=== PATIENT | female | born 1955 | race Caucasian/White ===

== ENCOUNTER → 2017-03-06 | Outpatient (CLI) | payer BC ==
[2017-03-06 11:05] LABS: CREATININE SERUM 0.97 MG/DL (0.60-1.30); POTASSIUM 3.4 MMOL/L (3.6-5.0)
--- NOTE | 2017-03-06 12:45 | Diagnostic Imaging Report ---
INDICATION: Hypertension. No chest complaints. COMPARISON STUDIES: None. FINDINGS: Frontal and lateral views of the chest demonstrate previous sternotomy changes. The heart size and vascularity are normal. The lungs are clear. No pleural effusions are present. IMPRESSION: There are no acute findings. Dictated by: Dictated on workstation # [id number]
== END ==
LOC: RAD 10:19
PROVIDERS: ATTEND Internal Medicine Cardiovascular Disease
DX: I10 Essential (primary) hypertension (principal); E78.5 Hyperlipidemia, unspecified; Z95.2 Presence of prosthetic heart valve
CPT/HCPCS: 36415; 71020; 80048

== ENCOUNTER → 2017-04-02 | Outpatient (CLI) | payer BC ==
[2017-04-02 08:40] LABS: ANION GAP 10 MMOL/L (5-14); BLOOD UREA NITROGEN 16 MG/DL (7-18); BUN/CREATININE RATIO 18; CALCIUM 9.1 MG/DL (8.5-10.1); CARBON DIOXIDE 30 MMOL/L (21-32); CHLORIDE 100 MMOL/L (98-107); CREATININE SERUM 0.89 MG/DL (0.60-1.30); GFR ESTIMATED > 60; GLUCOSE 147 MG/DL (70-105); POTASSIUM 3.2 MMOL/L (3.6-5.0); SODIUM 140 MMOL/L (135-145)
== END ==
LOC: LAB 08:01
PROVIDERS: ATTEND Internal Medicine Cardiovascular Disease
DX: E87.6 Hypokalemia (principal)
CPT/HCPCS: 36415; 80048

== ENCOUNTER → 2017-08-25 | Outpatient (CLI) | payer BC ==
[2017-08-25 11:43] LABS: BASOPHILS % (AUTO) 1 % (0-10); EOSINOPHILS # (AUTO) 0.1 10^3/uL (0.0-0.3); EOSINOPHILS % (AUTO) 1 % (0-10); LYMPHOCYTES # (AUTO) 1.8 X 10^3 (1.0-4.0); LYMPHOCYTES % (AUTO) 26 % (12-44); MEAN CORPUSCULAR HEMOGLOBIN 30 PG (25-34); MEAN CORPUSCULAR HGB CONC 34 G/DL (32-36); MEAN CORPUSCULAR VOLUME 87 FL (80-99); MEAN PLATELET VOLUME 9.1 FL (7.4-10.4); MONOCYTES # (AUTO) 0.6 X 10^3 (0.0-1.0); MONOCYTES % (AUTO) 9 % (0-12); NEUTROPHILS # (AUTO) 4.4 X 10^3 (1.8-7.8); NEUTROPHILS % (AUTO) 63 % (42-75); PLATELET COUNT 235 10^3/uL (130-400); RED BLOOD COUNT 5.23 10^6/uL (4.35-5.85); RED CELL DISTRIBUTION WIDTH 13.1 % (10.0-14.5); WHITE BLOOD COUNT 6.9 10^3/uL (4.3-11.0)
[2017-08-25 12:12] LABS: ALBUMIN 4.4 GM/DL (3.2-4.5); BILIRUBIN,TOTAL 0.7 MG/DL (0.1-1.0); CALCIUM 9.9 MG/DL (8.5-10.1); CREATININE SERUM 1.07 MG/DL (0.60-1.30); POTASSIUM 3.5 MMOL/L (3.6-5.0)
[2017-08-25 12:34] LABS: THYROID STIMULATING HORMONE 1.52 UIU/ML (0.35-4.94)
== END ==
LOC: LAB 11:18
PROVIDERS: ATTEND Family Medicine
DX: F31.81 Bipolar II disorder (principal); F32.9 Major depressive disorder, single episode, unspecified; I10 Essential (primary) hypertension; N95.9 Unspecified menopausal and perimenopausal disorder; E78.2 Mixed hyperlipidemia; R73.09 Other abnormal glucose; E06.3 Autoimmune thyroiditis
CPT/HCPCS: 36415; 80053; 80061; 83036; 84439; 84443; 85025; 87088

== ENCOUNTER → 2018-02-19 | Outpatient (CLI) | payer BC ==
[2018-02-19 09:25] LABS: BASOPHILS % (AUTO) 1 % (0-10); EOSINOPHILS # (AUTO) 0.2 10^3/uL (0.0-0.3); EOSINOPHILS % (AUTO) 3 % (0-10); HEMATOCRIT 43 % (35-52); HEMOGLOBIN 15.2 G/DL (11.5-16.0); LYMPHOCYTES # (AUTO) 1.6 X 10^3 (1.0-4.0); LYMPHOCYTES % (AUTO) 27 % (12-44); MEAN CORPUSCULAR HEMOGLOBIN 31 PG (25-34); MEAN CORPUSCULAR HGB CONC 35 G/DL (32-36); MEAN CORPUSCULAR VOLUME 87 FL (80-99); MEAN PLATELET VOLUME 9.7 FL (7.4-10.4); MONOCYTES # (AUTO) 0.6 X 10^3 (0.0-1.0); MONOCYTES % (AUTO) 10 % (0-12); NEUTROPHILS # (AUTO) 3.5 X 10^3 (1.8-7.8); NEUTROPHILS % (AUTO) 59 % (42-75); PLATELET COUNT 220 10^3/uL (130-400); RED BLOOD COUNT 4.98 10^6/uL (4.35-5.85); RED CELL DISTRIBUTION WIDTH 13.3 % (10.0-14.5); WHITE BLOOD COUNT 5.9 10^3/uL (4.3-11.0)
[2018-02-19 09:55] LABS: CHOLESTEROL 201 MG/DL (< 200); HDL CHOLESTEROL 50 MG/DL (40-60); TRIGLYCERIDES 120 MG/DL (<150); VLDL CHOLESTEROL 24 MG/DL (5-40)
[2018-02-19 10:10] LABS: ALANINE AMINOTRANSFERASE 20 U/L (0-55); ALBUMIN 4.5 GM/DL (3.2-4.5); ALKALINE PHOSPHATASE 59 U/L (40-136); BILIRUBIN,TOTAL 0.6 MG/DL (0.1-1.0); TOTAL PROTEIN 7.4 GM/DL (6.4-8.2)
[2018-02-19 10:26] LABS: FREE T4 (FREE THYROXINE) 1.17 NG/DL (0.70-1.48)
[2018-02-19 10:38] LABS: BUN/CREATININE RATIO 16; CALCIUM 9.4 MG/DL (8.5-10.1); CARBON DIOXIDE 25 MMOL/L (21-32); CHLORIDE 103 MMOL/L (98-107); CREATININE SERUM 0.93 MG/DL (0.60-1.30); GFR ESTIMATED > 60; GLUCOSE 124 MG/DL (70-105); POTASSIUM 3.9 MMOL/L (3.6-5.0); SODIUM 141 MMOL/L (135-145)
[2018-02-20 07:48] LABS: HEPATITIS C ANTIBODY C Non-Reactive (Non-Reactive)
== END ==
LOC: LAB 08:26
PROVIDERS: ATTEND Family Medicine
DX: I10 Essential (primary) hypertension (principal); E11.8 Type 2 diabetes mellitus with unspecified complications; E03.8 Other specified hypothyroidism; E06.3 Autoimmune thyroiditis; Z11.59 Encounter for screening for other viral diseases
CPT/HCPCS: 36415; 80053; 80061; 84439; 84443; 84480; 85025; 86803

== ENCOUNTER → 2018-02-19 | Outpatient (CLI) | payer BC ==
[~2018-02-19] MED LIST: CATHETER FLUSH 10 ML SYR IV PRN; IOHEXOL 350 MG/ML 150 ML (OMNIPAQUE 350) VIAL IV ONE; NS 250 ML (IVPB) BAG IV ONE
[2018-02-19 09:53] LABS: BUN/CREATININE RATIO 16; CALCIUM 9.6 MG/DL (8.5-10.1); CARBON DIOXIDE 27 MMOL/L (21-32); CHLORIDE 103 MMOL/L (98-107); CREATININE SERUM 0.91 MG/DL (0.60-1.30); GFR ESTIMATED > 60; GLUCOSE 124 MG/DL (70-105); SODIUM 141 MMOL/L (135-145)
--- NOTE | 2018-02-19 12:48 | Diagnostic Imaging Report ---
PROCEDURE: CT angiography of the chest with contrast. TECHNIQUE: Multiple contiguous axial images were obtained through the chest after uneventful bolus administration of intravenous contrast. Reconstructed CTA MIP acquisitions were also performed. INDICATION: Congenital heart disease, prior aortic valve repair. FINDINGS: There are no previous CT examinations available for comparison. The plain film examination of the chest performed on 03/06/2017 noted that the heart size was within normal limits. There were sternotomy wires and a valvular prosthesis evident. There was no sign of an acute abnormality. On this exam, the heart size remains within normal limits. There are sparse coronary artery calcifications evident. The aorta is not abnormally dilated. The ascending aorta measures 3.2 x 3.2 cm in maximum AP and transverse diameters. On the coronal images, the aortic root measures approximately 3 cm in maximum transverse diameter. There is no sign of dissection. There is no defect within the pulmonary arteries to indicate a pulmonary embolus. There do appear to be two contiguous nodes about the right hilum. These have a conglomerate size of approximately 2.1 x 2.2 cm. There is also a 1.2 x 1.4 cm left hilar node. A 1.3 x 1.6 cm pretracheal node is also evident. The hilar and pretracheal nodes are borderline enlarged but nonspecific in appearance. If previous studies are available, they would be helpful for comparison. There is a 0.8 x 1.3 cm area of low density in the left lobe of the thyroid. This is most likely a benign process but ultrasound would be recommended to better characterize this finding. The lungs are generally clear and well aerated. There is no sign of failure, pneumonia, or of a pleural effusion to suggest an acute abnormality. There is no parenchymal lung mass identified either. The sections through the upper abdomen fail to show any evidence for an acute abnormality. The liver is of lower density than usually seen. This does suggest fatty metamorphosis. There is also poorly defined 1.2 x 1.2 cm area of enhancement in the left lobe of the liver. This probably represents a small hemangioma. If previous studies are available, they would be helpful for comparison. If there are no prior exams, then a followup CT abdomen study with hemangioma protocol would be recommended to confirm this. Also, there is a 1.9 x 4.3 cm bilobed nodule associated with the left adrenal gland. There is also a 1.1 x 1.7 cm nodule arising from the right adrenal gland. These may well be benign adenomas. However, unless there are previous studies available to document that these are stable, then MRI would be recommended to better characterize these lesions. If the MRI exam is not performed, then a short-term (three-month) followup CT abdomen exam should be obtained. There is a 3.1 x 4.0 cm cyst along the posterior aspect of the left kidney. This cyst has a generally benign appearance. The bone windows are unremarkable for fracture or for an destructive lesion. There is no obvious breast mass. According to our records, the patient has not had a recent (within the last year) mammogram. If the patient has had a recent mammogram elsewhere, then no further imaging would be necessary. However, if the patient has not had a recent mammogram, then mammography would be recommended for further evaluation of the breast. IMPRESSION: 1. There is no evidence for an acute cardiopulmonary abnormality. In particular, there is no sign of an aneurysm of the aorta and there is no evidence for a dissection. There are postsurgical changes present, consistent with prior repair of the aortic valve. 2. There are few borderline enlarged nodes involving the diane and the mediastinum. These are nonspecific in appearance. If previous exams are available, they would be helpful for comparison. 3. There are multiple other abnormalities involving the thyroid gland and the upper abdomen. These would be best evaluated by comparison to previous studies. If there are no prior exams available, then additional imaging would be recommended as described above. Dictated by: Dictated on workstation # [id number]
--- NOTE | 2018-02-19 20:19 | Diagnostic Imaging Report ---
EXAMINATION: Calcium CTA, calcium score. Routine images were obtained. There are no prior studies available for comparison. The calcium score is 0. FINDINGS: The images of the thorax show that the heart size is within normal limits. There are sternotomy wires and surgical clips present, and there is a valvular prosthesis as well. The lungs, where visualized, are generally clear. There is no mediastinal or hilar adenopathy. The bone windows are unremarkable for a fracture or for a destructive lesion. The sections through the upper abdomen fail to show any sign of an acute abnormality. There is no obvious breast mass. IMPRESSION: 1. The calcium score is 0. 2. There is evidence of prior cardiac surgery and aortic valve repair. The thorax, where visualized, shows no acute abnormality. Dictated by: Dictated on workstation # [id number]
== END ==
LOC: CARD 08:33
PROVIDERS: ATTEND Internal Medicine Cardiovascular Disease
DX: I10 Essential (primary) hypertension (principal); E78.5 Hyperlipidemia, unspecified; Z95.2 Presence of prosthetic heart valve; Z98.890 Other specified postprocedural states; R91.8 Other nonspecific abnormal finding of lung field
CPT/HCPCS: 71275; 75571; 80048; 93306

== ENCOUNTER → 2018-09-30 | Outpatient (CLI) | payer BC ==
--- NOTE | 2018-09-30 12:53 | Diagnostic Imaging Report ---
PROCEDURE: US Thyroid. TECHNIQUE: Multiple real-time grayscale images were obtained of the thyroid in various projections. INDICATION: Thyroid nodules. COMPARISON: No prior studies are available for comparison. FINDINGS: The right lobe of the thyroid measures 6.0 x 2.3 x 1.9 cm and the left lobe measures 5.4 x 1.9 x 1.8 cm. Both lobes are heterogeneous and contain nodules. Largest nodule on the right is in the lower pole measuring 1.4 x 1.3 x 1.1 cm. Largest nodule on the left is in the lower pole measuring 2.0 x 1.3 x 1.6 cm. No microcalcifications are present. IMPRESSION: Bilateral thyroid nodules, largest on the left. A fine-needle aspiration could be performed of the dominant nodule. Dictated by: Dictated on workstation # [id number]
== END ==
LOC: RAD 11:48
PROVIDERS: ATTEND Otolaryngology Otolaryngology/Facial Plastic Surgery
DX: E04.2 Nontoxic multinodular goiter (principal)
CPT/HCPCS: 76536

== ENCOUNTER → 2018-09-30 | Outpatient (CLI) | payer BC ==
[2018-09-30 13:01] LABS: INR 2.1 (0.8-1.4); PROTHROMBIN TIME PATIENT 23.8 SEC (12.2-14.7)
[2018-09-30 13:09] LABS: ALANINE AMINOTRANSFERASE 19 U/L (0-55); ALBUMIN 4.7 GM/DL (3.2-4.5); ALKALINE PHOSPHATASE 68 U/L (40-136); BILIRUBIN,TOTAL 0.6 MG/DL (0.1-1.0); BUN/CREATININE RATIO 14; CALCIUM 9.8 MG/DL (8.5-10.1); CARBON DIOXIDE 30 MMOL/L (21-32); CHLORIDE 101 MMOL/L (98-107); CREATININE SERUM 0.93 MG/DL (0.60-1.30); GFR ESTIMATED > 60; GLUCOSE 88 MG/DL (70-105); POTASSIUM 3.8 MMOL/L (3.6-5.0); SODIUM 141 MMOL/L (135-145); TOTAL PROTEIN 7.8 GM/DL (6.4-8.2)
== END ==
LOC: LAB 11:52
PROVIDERS: ATTEND Internal Medicine Cardiovascular Disease
DX: E87.6 Hypokalemia (principal); Z95.2 Presence of prosthetic heart valve; E11.8 Type 2 diabetes mellitus with unspecified complications
CPT/HCPCS: 36415; 80053; 85610

== ENCOUNTER → 2018-12-31 | Outpatient (CLI) | payer BC ==
--- NOTE | 2018-12-31 13:38 | Diagnostic Imaging Report ---
INDICATION: Multinodular goiter. Sonographic guidance was provided for Dr. Hare for a fine-needle aspiration. Images demonstrate a left lobe thyroid solid mass. Total of 3 passes were made. IMPRESSION: Sonographic guidance for Dr. Hare for left thyroid FNA. Dictated by: Dictated on workstation # [id number]
== END ==
LOC: RAD 10:00
PROVIDERS: ATTEND Otolaryngology Otolaryngology/Facial Plastic Surgery
DX: E04.2 Nontoxic multinodular goiter (principal)
CPT/HCPCS: 76942

== ENCOUNTER → 2019-10-06 | Outpatient (CLI) | payer BC ==
--- NOTE | 2019-10-06 12:11 | Diagnostic Imaging Report ---
PROCEDURE: US Thyroid. TECHNIQUE: Multiple real-time grayscale images were obtained of the thyroid in various projections. INDICATION: Multinodular goiter. COMPARISON: December 31, 2018 and September 30, 2018. FINDINGS: The right lobe of the thyroid gland is enlarged measuring 5.9 x 2.3 x 2.2 cm. It demonstrates a heterogeneous echotexture. A 1.3 x 1.2 x 1.2 cm solid round nodule is again noted within the inferior aspect of the right thyroid lobe, not significantly changed from the prior examination. No new right thyroid nodule is identified. The left lobe of the thyroid gland is enlarged measuring 5.5 x 1.9 x 2.0 cm. A solid 2.5 x 2.2 x 1.4 cm isoechoic nodule is again noted within the inferior pole of the left thyroid lobe. This appears minimally increased in size since the prior examination when it measured 2.0 x 1.6 x 1.3 cm. No new left thyroid nodules. The isthmus demonstrates no nodule. IMPRESSION: Bilateral thyroid nodules as described above. The left thyroid nodule has minimally increased since the prior examination one year prior. Recommend correlation with prior fine-needle aspiration. Additional right thyroid nodule is stable since the prior examination. Follow-up ultrasound is recommended in one year. Dictated by: Dictated on workstation # [id number]
== END ==
LOC: RAD 10:45
PROVIDERS: ATTEND Otolaryngology Otolaryngology/Facial Plastic Surgery
DX: E04.2 Nontoxic multinodular goiter (principal)
CPT/HCPCS: 76536

== ENCOUNTER → 2020-09-20 | Outpatient (CLI) | payer BC ==
--- NOTE | 2020-09-21 15:32 | Diagnostic Imaging Report ---
PROCEDURE: US Thyroid. TECHNIQUE: Multiple real-time grayscale images were obtained of the thyroid in various projections. INDICATION: Thyroid nodules. COMPARISON: Comparison is made with prior thyroid ultrasound from 10/06/2019. FINDINGS: Right lobe of thyroid measures 5.0 x 2.2 x 1.8 cm and the left lobe measures 5.1 x 2.1 x 1.6 cm. Both lobes show parenchymal heterogeneity. A nodule in the inferior right lobe appears solid measuring 1.3 x 1.2 x 1.2 cm, unchanged. Solid nodule in lower pole of left lobe measures 2.2 x 2.5 x 1.5 cm, unchanged from prior exam. No new mass is detected. IMPRESSION: Stable bilateral thyroid nodules when compared with prior ultrasound from one year earlier. Dictated by: Dictated on workstation # [id number]
== END ==
LOC: RAD 09:48
PROVIDERS: ATTEND Otolaryngology Otolaryngology/Facial Plastic Surgery
DX: E04.2 Nontoxic multinodular goiter (principal)
CPT/HCPCS: 76536

== ENCOUNTER → 2022-04-03 | Outpatient (CLI) | payer MEDICARE ==
--- NOTE | 2022-04-03 10:11 | Diagnostic Imaging Report ---
INDICATION: Thyroid nodules. TECHNIQUE: Grayscale sonographic images of the thyroid gland. CORRELATION STUDY: 09/20/2020. FINDINGS: RIGHT LOBE: Enlarged at 6.5 x 2.2 x 1.8 cm. Heterogeneous echotexture through the right lobe with some increased vascularity. Two solid slightly hypoechoic nodules at the inferior pole are present. One measures 1.3 x 0.9 x 0.9 cm with the second at 1.2 x 1.2 x 1.0 cm. Previously, the nodule measured 1.3 x 1.2 x 1.2 cm, stable. LEFT LOBE: Enlarged at 5.9 x 2.3 x 2.2 cm. Heterogeneous echotexture through the left lobe with some increased vascularity. Two nodules in the left inferior pole are present. Smaller one is slightly hypoechoic but appearing solid at 1.6 x 1.0 x 0.9 cm. Additional one is somewhat heterogeneous but largely solid measuring 2.5 x 1.4 x 2.1 cm. Previously, the largest nodule measured 2.2 x 2.5 x 1.5 cm, relatively stable. The isthmus appears unremarkable. IMPRESSION: Enlarged thyroid gland containing mild bilateral solid nodules. The dominant nodule in the left thyroid lobe has shown enlargement since initial baseline imaging but overall has been relatively stable over the past two studies dating back to September 2019. (Normal gland size: 4-5 x 2 x 2 cm) Dictated by: Dictated on workstation # [id number]
== END ==
LOC: RAD 08:01
PROVIDERS: ATTEND Otolaryngology Otolaryngology/Facial Plastic Surgery
DX: E04.2 Nontoxic multinodular goiter (principal)
CPT/HCPCS: 76536

== ENCOUNTER → 2022-04-03 | Outpatient (CLI) | payer MEDICARE ==
--- NOTE | 2022-04-03 09:44 | Diagnostic Imaging Report ---
PROCEDURE: US carotid duplex, bilateral. INDICATION: 66-year-old female, history tobacco use, hypertension, dizziness, headache. Blurred vision. TECHNIQUE: Multiple real-time grayscale images were obtained over the carotid arteries in various projections bilaterally. Additional spectral analysis and color Doppler and Duplex images were also obtained. CORRELATION: None FINDINGS: There is mild atherosclerosis involving bilateral carotid arteries particularly at the carotid bifurcations. Tortuous vessels are present. Right carotid circulation: The right common carotid artery is normal in course and caliber. The right internal carotid artery is patent. No hemodynamically significant stenosis is present at this time. Right external carotid artery is patent. Left carotid circulation: The left common carotid artery is normal in course and caliber. The left internal carotid artery is patent. No hemodynamically significant stenosis is present at this time. Left external carotid artery is patent. Antegrade flow in the bilateral vertebral arteries. Parameters based on the consensus panel Bains-Scale and Doppler ultrasound criteria published September 2003, Radiology, Volume 229. DOPPLER (peak systolic velocity M/S Right Left CCA .97 .91 ICA Proximal .82 .56 ICA Mid .79 .51 ICA Distal .64 .59 RATIO .85 .65 ECA .54 .94 VERT .54 .58 IMPRESSION: 1. Mild atherosclerosis involving bilateral carotid arteries. 2. No sonographic evidence to suggest a hemodynamically significant stenosis of the internal carotid arteries at this time. Dictated by: Dictated on workstation # [id number]
--- NOTE | 2022-04-03 10:02 | Diagnostic Imaging Report ---
PROCEDURE: CT head without contrast. TECHNIQUE: Multiple contiguous axial images were obtained through the brain without the use of intravenous contrast. Auto Exposure Controls were utilized during the CT exam to meet ALARA standards for radiation dose reduction. DATE: April 03, 2022. COMPARISON: None. INDICATION: 66-year-old female, dizziness, enteritis. Difficulties with vision. FINDINGS: There is an area of prominent abnormal low-attenuation in the right occipital lobe which is near but not quite CSF attenuation. There is proportional prominence of the ventricles and additional CSF spaces, consistent with mild to moderate cerebral volume loss. There is no mass effect or midline shift. There is no acute intracranial hemorrhage. There is no abnormal extra-axial fluid collection. The visualized portions of the paranasal sinuses, mastoid air cells and middle ears are well aerated. IMPRESSION: 1. Large area of prominent abnormal low-attenuation in the right occipital lobe which is near but not quite CSF attenuation to specifically diagnose this as a remote infarct although this is still considered. Particularly given the provided symptoms, further evaluation with MRI brain without contrast may be helpful to assess acuity of this probable area of infarct. 2. Mild to moderate cerebral volume loss. Dictated by: Dictated on workstation # [id number]
== END ==
LOC: RAD 09:08
PROVIDERS: ATTEND Family Medicine
DX: I65.23 Occlusion and stenosis of bilateral carotid arteries (principal); M79.2 Neuralgia and neuritis, unspecified; I10 Essential (primary) hypertension; Z72.0 Tobacco use
CPT/HCPCS: 70450; 93880

== ENCOUNTER → 2023-10-02 | Outpatient (CLI) | payer MEDICARE ==
--- NOTE | 2023-10-02 16:35 | Diagnostic Imaging Report ---
PROCEDURE: US Thyroid. TECHNIQUE: Multiple real-time grayscale images were obtained of the thyroid in various projections. INDICATION: Thyroid nodule. COMPARED: 04/03/2022. FINDINGS: Multinodular heterogeneous thyromegaly, the right lobe 6.3 x 1.7 x 1.8 cm unchanged in size from prior. There is a solid mass in the lower pole of 1.1 cm heterogeneous but predominantly iso to hyperechoic. This previously measured 1.3 cm. A second right lobe mass is 1.3 cm at the mid pole, unchanged. No new thyroidal mass. The left thyroid lobe enlarged, heterogeneous multinodular 6.2 x 2.0 x 2.0 cm, unchanged in size. It has a lower pole solid mass predominantly isoechoic 2.5 cm unchanged. A mid pole mass measuring 1.2 cm solid iso to slightly hypoechoic unchanged. IMPRESSION: Heterogeneous multinodular thyromegaly unchanged from prior. No new lesion or suspicious mass. Dictated by: Dictated on workstation # [id number]
== END ==
LOC: RAD 10:23
PROVIDERS: ATTEND Nurse Practitioner Family
DX: E01.0 Iodine-deficiency related diffuse (endemic) goiter (principal)
CPT/HCPCS: 76536